=== PATIENT | female | born 1965 | race Caucasian/White ===

== ENCOUNTER 2016-11-18 10:53 | Day surgery (SDC) | payer OTHER ==
[~2016-11-18] VITALS: Ht 152.4 cm; Wt 76.2 kg
[~2016-11-18 10:53] MED LIST: CELEXA10 MG PO; CLARITIN,ALAVAR10 MG PO; IBUPROFEN200 M1 PO; IMITREX25 MG PO; PRAVASTATIN SOD40 MG PO
[2016-11-18 11:36] VITALS: BP 122/70
[2016-11-18 14:15] VITALS: BP 136/69
[2016-11-18 15:09] VITALS: BP 141/83
== END 2016-11-18 15:21 | disposition home or self-care (01) ==
LOC: SDC 10:53
DX: G56.01 Carpal tunnel syndrome, right upper limb (principal); M65.331 Trigger finger, right middle finger; M67.441 Ganglion, right hand; E78.5 Hyperlipidemia, unspecified; F32.9 Major depressive disorder, single episode, unspecified; Z91.09 Other allergy status, other than to drugs and biological substances; Z82.49 Family history of ischemic heart disease and other diseases of the circulatory system; Z82.61 Family history of arthritis
CPT/HCPCS: J1100; J2250; S0020